=== PATIENT | male | born 1965 | race Caucasian/White ===

== ENCOUNTER 2018-12-30 06:01 | Day surgery (SDC) | payer MEDICARE, SELFPAY ==
[2018-09-23 13:13] VITALS: BMI 25.0
[2018-12-25 09:43] VITALS: BP 123/74; PULSE 54; RESP 16; TEMP 36.6; O2SAT 99; BMI 25.5
--- NOTE | 2018-12-25 10:06 | SDCEKG_ITS ---
Test Reason : Blood Pressure : / mmHG Vent. Rate : 057 BPM Atrial Rate : 057 BPM P-R Int : 170 ms QRS Dur : 100 ms QT Int : 434 ms P-R-T Axes : 034 086 025 degrees QTc Int : 422 ms Sinus bradycardia Otherwise normal ECG Confirmed by KALI HERNANDEZ, SUE ([id number]), copy editor CHELSEA RUANO ([id number]) on 12/31/2018 1:55:17 PM Referred By: Teddy Coleman Confirmed By:SUE BASS MD
--- NOTE | 2018-12-25 10:15 | RAD_ITS ---
STUDY: X-RAY CHEST REASON FOR EXAM: Male, 53 years old. Paramedian forehead flap. Preoperative evaluation. TECHNIQUE: Frontal and lateral views of the chest. COMPARISON: None. FINDINGS: The lungs are hyperexpanded. There are no focal consolidations. There is no demonstrated pleural abnormality. Normal size heart. Normal mediastinum and maxi. Normal visualized pulmonary arteries. Normal visualized aortic arch and descending thoracic aorta. Normal visualized thoracic spine. There are multiple healed rib fractures on the left. There is no demonstrated abnormality of the visualized soft tissue structures of the upper abdomen. RAD/Chest PA and Lateral IMPRESSION: Hyperexpansion with no acute finding. Electronically Signed: Austin Caro MD at 10:33 EDT , Service support ,
[2018-12-25 11:44] LABS: Hematocrit 40.5 % (40-54); Hemoglobin 13.3 g/dl (13.0-16.5); Mean Corp Hgb Conc 32.8 g/gl (32-36); Mean Corpuscular Hgb 31.2 pg (27.0-32.0); Mean Corpuscular Volume 95.1 fL (80-94); Mean Platelet Vol. 10.1 fl (6.2-12.0); Platelet Count 249 K/mm3 (150-450); RBC Distribution Width CV 13.2 % (11.6-14.6); RBC Distribution Width SD 44.4 fl (35.1-43.9); Red Blood Count 4.26 M/mm3 (4.6-6.2); White Blood Count 5.6 K/mm3 (4.4-11.0)
[2018-12-25 11:48] LABS: Scan Indicated on CBC? Y/N NO
[2018-12-25 12:05] LABS: Anion Gap 6 (5-15); BUN 15 mg/dL (7-18); Calcium,Total 8.9 mg/dL (8.5-10.1); Chloride 105 mmol/L (98-107); Creatinine, Serum 0.94 mg/dL (0.70-1.30); EST Glomerular Filtration Rate 89 mL/min (>60); Est Glom Filt Rate - Afr Amer 108 mL/min (>60); Estimated Creatinine Clearance 102.71 ml/min; Glucose 86 mg/dL (74-106); Potassium 3.9 mmol/L (3.5-5.1); Sodium Level 139 mmol/L (136-145)
[2018-12-30] VITALS (7 sets, daily range): BP systolic 109–134; BP diastolic 64–77; PULSE 48–57; RESP 16; TEMP 36.2–36.6; O2SAT 92–98; BMI 25.3
--- NOTE | 2018-12-30 | LES_PTH ---
PATIENT: SHERI SCHNEIDER [place] [facility] [id number] AGE/SX: 53/M ROOM: RE12/30/[address]: Dr. Sam Coleman MD : 1965 BED: DIS: 12/30/2018 SPEC #: [id number] RECD: 12/30/18 08:20 STATUS: IRVIN ERAN #: [id number] MIRTHA: 12/30/18 00:[address]: Sam Coleman DEPT: SURGICAL PATHOLOGY RECD BY: Melissa Malagon ENTERED: 12/30/18 09:10 SP TYPE: Lesion OTHR DR: Dr. Jose Mcclelland MD Tissues: A - Skin of nose, NOS B - Skin of nose, NOS C - Skin of nose, NOS D - Skin of nose, NOS E - Skin of nose, NOS F - Skin of nose, NOS G - Skin of nose, NOS Procedures: Frozen Section (charge) Frozen Section Add'l ([facility]) Surgery Specimen Level IV HEADER OPERATION: Paramedian forehead flap, excision malignant lesion PRE-OP DIAGNOSIS: Basal cell carcinoma nose TISSUE SUBMITTED: A - Nasal lesion FS, long stitch - inferior at 6 o'clock, short stitch - left lateral at 3 o'clock, sent 0814, B - #2 additional deep margin nasal lesion sent FS sent 0851, C - Additional deep margin nasal lesion sent FS sent 0851, D - Left lower lateral cartilage FS, E - Left deep margin FS, F - Right lower lateral cartilage FS, G - Right deep margin FS FROZEN SECTION DIAGNOSIS A. Nasal lesion, biopsy: Basal cell carcinoma, peripheral margins are negative for carcinoma. Deep margin is focally positive for carcinoma. B. Additional deep margin of nasal lesion, biopsy: Negative for carcinoma. C. Additional deep margin of nasal lesion, biopsy: Positive for basal carcinoma. D. Left lower lateral cartilage, biopsy: Negative for carcinoma. E. Left deep margin, biopsy: Negative for carcinoma. F. Right lower lateral cartilage, biopsy: Negative for carcinoma. G. Right deep margin, biopsy: Negative for carcinoma. SJ:angelita 12/30/18 MICROSCOPIC DIAGNOSIS A. Nasal lesion, excisional biopsy: Basal cell carcinoma. Solar elastosis. See comment. B. Additional deep margin of nasal lesion, biopsy: Fibromuscular tissue, negative for carcinoma. C. Additional deep margin of nasal lesion, biopsy: Fibrovascular tissue, positive for basal carcinoma. D. Left lower lateral cartilage, biopsy: Fragment of cartilage and fatty tissue, negative for carcinoma. E. Left deep margin, biopsy: Fibrous tissue, negative for carcinoma. F. Right lower lateral cartilage, biopsy: Fragment of cartilage, negative for carcinoma. G. Right deep margin, biopsy: Muscular and fatty tissue, negative for carcinoma. AM:angelita 12/31/18 COMMENT A. The lesion extends focally to the deep margin of excision. The peripheral margins are free of carcinoma in the planes examined. Case has been reviewed in consultation with Dr. Goodson who concurs with the above diagnosis. IDC:SJ MICROSCOPIC DESCRIPTION Slides are reviewed. GROSS DESCRIPTION A - Received fresh for frozen section diagnosis labeled with the patient's name is a specimen designated nasal lesion. The specimen consists of a round piece of kinney-white skin measuring 3 x 3 x 1.5 cm. A raised nodular lesion noted on the surface measuring 2.5 x 2.5 x 1 cm. The specimen is oriented as follows: long stitch - inferior 6 o'clock, short stitch - left lateral 3 o'clock. The specimen is inked as follows: 12 to 3 o'clock - black, 3 to 6 o'clock - blue, 6 to 9 o'clock - green, 9 to 12 o'clock - yellow, deep margin -red. The entire specimen is submitted for frozen section diagnosis in five cassettes as follows: 1 & 2 - peripheral margin, enface, 3-5 - rest of the specimen. B - Received fresh for frozen section diagnosis labeled with the patient's name is a specimen designated #2 additional deep margin nasal lesion. The specimen consists of a piece of kinney soft tissue measuring 0.4 x 0.2 x 0.1 cm. The entire specimen is submitted for frozen section diagnosis in one cassette. C - Received fresh for frozen section diagnosis labeled with the patient's name is a specimen designated Additional deep margin nasal lesion. The specimen consists of a piece of kinney soft tissue measuring 0.3 x 0.2 x 0.1 cm. The entire specimen is submitted for frozen section diagnosis in one cassette. D - Received fresh for frozen section diagnosis labeled with the patient's name is a specimen designated left lower lateral cartilage. The specimen consists of a piece of kinney soft tissue measuring 1 x 0.3 x 0.1 cm. The entire specimen is submitted for frozen section diagnosis in one cassette. E - Received fresh for frozen section diagnosis labeled with the patient's name is a specimen designated left deep margin. The specimen consists of a piece of kinney soft tissue measuring 0.5 x 0.1 x 0.1 cm. The entire specimen is submitted for frozen section diagnosis in one cassette. F - Received fresh for frozen section diagnosis labeled with the patient's name is a specimen designated right lower lateral cartilage. The specimen consists of a piece of kinney soft tissue measuring 0.7 x 0.2 x 0.1 cm. The entire specimen is submitted for frozen section diagnosis in one cassette. G - Received fresh for frozen section diagnosis labeled with the patient's name is a specimen designated right deep margin. The specimen consists of a piece of kinney soft tissue measuring 0.4 x 0.2 x 0.1 cm. The entire specimen is submitted for frozen section diagnosis in one cassette. / SJ:rg 12/30/18 TC:0 CPT: 60488 x7, 64107 x7, 48132 x4
[2018-12-30] MEDS: Mupirocin Ointment 22gm Tube 1 APPLIC (10:00)
--- NOTE | 2018-12-30 11:23 | PCM.OPRPT ---
Report of Operation Date of Procedure: 12/30/18 Pre-Operative Diagnosis: Basal cell carcinoma nose Post-Operative Diagnosis: same Surgery/Procedure Performed:: Excision basal cell carcinoma (3x3cm defect). Excision anterior cartilaginous septum. Description of Surgical Findings:: clear margins by frozen section towel cabinet repairer: Teddy Coleman Type of Anesthesia:: General Anesthesiologist: Timur Hernandez Specimen's removed: yes Estimated Blood Loss (mL): minimal Description of Procedure: The patient was taken to the OR on 12/30/17. He was placed in the supine position on the OR table. He was given sufficient general endotracheal anesthesia. The table was turned 90 degrees clockwise. The entire face and anterior scalp were prepped and draped steriley. 1% lidocaine with epinephrine [id number] was injected into the skin surrounding the large nasal carcinoma. The lesion was excised with 6 mm margins circumferentially. Sutures were used to nelida the position of the specimen. The dissection was carried down on top of the upper and lower lateral cartilages. The lesion was then excised sharply and sent for frozen section. We then heard that the periphery was clear of tumor however we had a positive margin deep. We sent another deep margin which was also positive. Next, we sent more deep margins including the lower lateral cartilages bilaterally, the upper lateral cartilage area bilaterally. We also resected cartilaginous septum. All of these came back negative for carcinoma. We then irrigated the wound with saline. Dr. Coleman performed a paramedian forehead flap reconstruction which will be dictated in a separate note. Sponge, needle and instrument count were correct at the end of this procedure.
--- NOTE | 2018-12-30 11:30 | OP.PCM_ITS ---
Report of Operation Date of Procedure: 12/30/18 Pre-Operative Diagnosis: Basal cell carcinoma nose Post-Operative Diagnosis: same Surgery/Procedure Performed:: Excision basal cell carcinoma (3x3cm defect). Excision anterior cartilaginous septum. Description of Surgical Findings:: clear margins by frozen section pulmonologist: Teddy Coleman Type of Anesthesia:: General Anesthesiologist: Timur Hernandez Specimen's removed: yes Estimated Blood Loss (mL): minimal Description of Procedure: The patient was taken to the OR on 12/30/17. He was placed in the supine position on the OR table. He was given sufficient general endotracheal anesthesia. The table was turned 90 degrees clockwise. The entire face and anterior scalp were prepped and draped steriley. 1% lidocaine with epinephrine 1:[id number] was injected into the skin surrounding the large nasal carcinoma. The lesion was excised with 6 mm margins circumferentially. Sutures were used to nelida the position of the specimen. The dissection was carried down on top of the upper and lower lateral cartilages. The lesion was then excised sharply and sent for frozen section. We then heard that the periphery was clear of tumor however we had a positive margin deep. We sent another deep margin which was also positive. Next, we sent more deep margins including the lower lateral cartilages bilaterally, the upper lateral cartilage area bilaterally. We also resected cartilaginous septum. All of these came back negative for carcinoma. We then irrigated the wound with saline. Dr. Coleman performed a paramedian forehead flap reconstruction which will be dictated in a separate note. Sponge, needle and instrument count were correct at the end of this procedure.
--- NOTE | 2018-12-30 12:05 | DCINST_ITS ---
You will use the following diet at home:: No restrictions Discharge Activity: Return to Normal Activity Call your doctor if your incision/area has: Increased Pain/ Swelling Additional Dressing/Incision Instructions:: place mupirocin ointment on incisions twice daily. sleep with head of bed elevated. Allergies/Adverse Reactions: Allergies No Known Allergies Allergy (Verified 12/25/18 09:40) Medications to take at Discharge Carbidopa/Levodopa/Entacapone [Hklqotuqe-Uulvynqb-Haog 50 mg] 1 each PO 4X/DAY 02/27/17 Ropinirole HCl [Requip] 5 mg PO 4X/DAY 02/27/17 Amoxicillin 875 mg PO BID #6 tab 12/30/18 Oxycodone HCl/Acetaminophen [Percocet 5/325] 1 tab PO Q6H PRN PRN 5 Days #20 tab 12/30/18 The following prescriptions were given: Oxycodone HCl/Acetaminophen [Percocet 5/325] 1 tab PO Q6H PRN PRN 5 Days #20 tab PRN Reason: Pain Amoxicillin 875 mg PO BID #6 tab Primary Care Physician: Jose Mcclelland MD [Primary Care Provider] - Test Results: Test results from this visit will be discussed in further detail at your follow- up appointment, if applicable. Please Follow Up With: Teddy Coleman MD When: 1 week
--- NOTE | 2018-12-30 17:04 | OP.PCM_ITS ---
Problem List (1) Basal cell carcinoma of nose Status: Chronic Report of Operation Date of Procedure: 12/30/18 Pre-Operative Diagnosis: basal cell carcinoma, nose Post-Operative Diagnosis: basal cell carcinoma, nose Surgery/Procedure Performed:: paramedian forehead flap Type of Anesthesia:: General Description of Procedure: on the day of the procedure, after appropriate informed consent was obtained, the patient was brought to the operating room and placed in supine position on the operating table. he was placed under general endotracheal anesthesia by the anesthesiologist. the endotracheal tube was secured, the eyes were taped. the table was rotated 90 degrees toward the surgeon. the nearly 3cm nasal tip lesion was injected with lidocaine/epinephrine. please see the excision note by guille jeffery. the excision defect was 3.3 x 3.3 cm. once margins taken were completely negative, we proceeded with reconstruction. the defect was undermined 1cm in all directions. the anatomic markings for usual supratrochlear artery location at the superior orbital rim were marked. this area, 2cm from midline, was dopplered and a strong arterial signal was found. the defect was outlined with a template and this was oriented on the forehead after the distance from the right superior orbital rim was measured with a sponge. a 1.5 cm pedicle was extended from the right superior orbital rim into the forehead and outlined template. a #15 blade was used to make incisions on the outlined areas. the flap was elevated distally to proximally in the sub gal eal plane. 1.5cm superior to the rim, the dissection was taken in a subperiosteal plane to the orbital rim. the distal portion of the flap was thinned and the frontalis was removed. the forehead was dissected in a subgaleal plane laterally to the temporal lines and galeotomies were performed with a #15 blade. the forehead was closed with a combination of 3-0 PDS, 4-0 vicryl and 5-0 fast gut. a superior dog ear was trimmed and closed. the flap was rotated clockwise and sutured in place with 4-0 vicryl and 5-0 fast gut. floseal and xeroform were placed on the open pedicle. the patient was awoken from anesthesia and transferred to the PACU in stable condition.
== END 2018-12-30 13:58 | disposition home or self-care (01) ==
LOC: SDC 06:01 → AC 06:01
PROVIDERS: Family Provider Family Medicine; PCP Family Medicine; Referring Provider Otolaryngology; Visit Provider Otolaryngology
PROC: (CPT 15731; principal; 2018-12-30 07:10)
DX: C44.311 Basal cell carcinoma of skin of nose (principal); G20 Parkinson's disease; Z79.899 Other long term (current) drug therapy
CPT/HCPCS: 00300; 11646; 15731; 36415; 71046; 80048; 85027; 88305; 88331; 88332; 93005; J7120

== ENCOUNTER 2019-01-27 07:44 | Day surgery (SDC) | payer MEDICARE, SELFPAY ==
[2018-09-23 13:13] VITALS: BMI 25.0
[2018-12-30 06:39] VITALS: BMI 25.3
[2019-01-27] VITALS (7 sets, daily range): BP systolic 118–148; BP diastolic 71–84; PULSE 55–70; RESP 16–18; TEMP 36.3–36.7; O2SAT 94–100; BMI 25.4
--- NOTE | 2019-01-27 08:31 | DCINST_ITS ---
You will use the following diet at home:: No restrictions Discharge Activity: Return to Normal Activity Call your doctor if your incision/area has: Foul Smelling Discharge Allergies/Adverse Reactions: Allergies No Known Allergies Allergy (Verified 01/27/19 08:09) Medications to take at Discharge Carbidopa/Levodopa/Entacapone [Htceaynxb-Nyzvpltc-Imjp 50 mg] 1 each PO 4X/DAY 02/27/17 Ropinirole HCl [Requip] 5 mg PO 4X/DAY 02/27/17 Multivitamin [Multivitamins] 1 each PO DAILY 01/20/19 Primary Care Physician: Jose Mcclelland MD [Primary Care Provider] - Test Results: Test results from this visit will be discussed in further detail at your follow- up appointment, if applicable. Please Follow Up With: Teddy Coleman MD When: 2 weeks
--- NOTE | 2019-01-27 08:33 | PCM.OPRPT ---
Problem List (1) Basal cell carcinoma of nose Status: Chronic Report of Operation Date of Procedure: 01/27/19 Pre-Operative Diagnosis: 1. basal cell carcinoma of nose. 2. reconstructive defect Post-Operative Diagnosis: 1. basal cell carcinoma of nose. 2. reconstructive defect Surgery/Procedure Performed:: 1. paramedian forehead flap takedown and inset. 2. donor site defect closure Type of Anesthesia:: General Description of Procedure: on the day of the procedure after appropriate informed consent was obtained, the patient was brought to the operating room and placed in supine position on the operating table. he was placed under general endotracheal anesthesia by the anesthesiologist. the endotracheal tube was secured, the eyes were taped. the table was rotated 90 degrees toward the surgeon. the nose and pedicle were injected with lidocaine/epinephrine. the pedicle was divided at the flap midpoint with a #15 blade. hemostasis was achieved with bipolar electrocautery. the superior 1.5 cm of the nasal defect portion of the flap was elevated, thinned and trimmed to fit the superior rim of the nasal tip/dorsum defect. this was sutured into place using 4-0 PDS and 5-0 fast-gut. the pedicle base was also trimmed and the inferior portion of the vertical forehead incision was opened 2cm from the pedicle base. the area was undermined in 2cm in all directions using an iris scizzor. the pedicle was trimmed accordingly and inset to the supraorbital triangular defect. this was sutured into place with 4-0 PDS and 5-0 fast gut. the incisions were covered with mupirocin. the patient was extubated by anesthesia and transferred to the PACU in stable condition.
[2019-01-27] MEDS: Mupirocin Ointment 22gm Tube 1 APPLIC (09:37)
== END 2019-01-27 12:46 | disposition home or self-care (01) ==
LOC: SDC 07:45 → AC 07:46
PROVIDERS: Family Provider Family Medicine; PCP Family Medicine; Referring Provider Otolaryngology; Visit Provider Otolaryngology
PROC: (CPT 15731; principal; 2019-01-27 09:00)
DX: C44.311 Basal cell carcinoma of skin of nose (principal); G20 Parkinson's disease; Z79.899 Other long term (current) drug therapy
CPT/HCPCS: 00300; 15731; J7120; J2405

== ENCOUNTER → 2023-06-20 | Outpatient (CLI) | payer MEDICARE, SELFPAY ==
[2018-09-23 13:13] VITALS: BMI 25.0
--- NOTE | 2023-06-20 13:07 | CT_ITS ---
STUDY: CT BRAIN WITH AND WITHOUT CONTRAST REASON FOR EXAM: Male, 57 years old. One month history of headaches. History of Parkinson''s disease. RADIATION DOSAGE (If Supplied By Facility): CTDIvol = ( 44.99 ) mGy, DLP = ( 1682.21 ) mGycm TECHNIQUE: Transaxial CT imaging of the brain was performed pre and post contrast administration. The examination was performed with intravenous administration of IV-50 mL IsoVue 370. Individualized dose optimization techniques were used for this CT. COMPARISON: None. FINDINGS: Normal soft tissue structures. Normal calvarium. Normal size ventricles and extra-axial spaces for the patient''s age. Normal white matter tracts of the cerebral hemispheres. Normal basal ganglia and thalami. Normal brainstem. Normal cerebellum. There is no intracranial hemorrhage. There are no findings of an acute ischemic infarction. Normal visualized paranasal sinuses. CT/Brain/Head W/WO Contrast IMPRESSION: Normal unenhanced and enhanced CT scan of the brain. Electronically Signed: Mane Tom MD at 15:07 EDT ,
== END | disposition home or self-care (01) ==
PROVIDERS: PCP Family Medicine; Visit Provider Family Medicine
DX: R51.9 Headache, unspecified (principal)
CPT/HCPCS: 70470; Q9967